=== PATIENT | female | born 1945 | race Caucasian/White ===

== ENCOUNTER 2018-02-13 10:04 | Emergency (ER) | payer OTHER, SELFPAY ==
[2018-02-13 10:08] VITALS: BP 134/65; PULSE 70; RESP 16; TEMP 36.8; O2SAT 99
--- NOTE | 2018-02-13 10:31 | ED.GENADUL ---
Disposition Clinical Impression: Rash Disposition: HOME Instructions: Acute Rash (ED), Impetigo (ED) Additional Instructions: Please use antibiotic ointment as prescribed. Please follow-up with your primary care physician. Return to the emergency department immediately for any worsening or new concerning symptoms. Prescriptions: Mupirocin 2% Oint. [Bactroban 2% Ointment] 22 gm TP DIRECTED #1 tube Medical Decision Making - Medical Decision Making 72-year-old female here with rash. Rashes sparsely distributed. No signs of cellulitis. Suspect insect bites versus very early impetigo given exposure history. Plan to treat with mupirocin. Patient understands importance of timely follow-up with primary care physician. I did encourage her to return should she have any worsening or new concerning symptoms. History of Present Illness - General Chief complaint: RashLesion Stated complaint: IMPETIGO Time Seen by Provider: 02/13/18 10:19 Source: patient, RN notes reviewed Mode of arrival: ambulatory Limitations: no limitations - Related Data ClonazePAM [KlonoPIN] 0.25 - 0.5 tab PO DAILY PRN 02/13/18 Lisinopril 10 mg PO DAILY 02/13/18 Mupirocin 2% Oint. [Bactroban 2% Ointment] 22 gm TP DIRECTED #1 tube 02/13/18 Allergies Allergy/AdvReac Type Severity Reaction Status Date / Time No Known Allergies Allergy Unverified 02/13/18 10:10 Review of Systems Constitutional: denies: chills, fever Skin: as per HPI Hematological/Lymphatic: denies: swollen glands Past Medical History - Past Medical History Medical history: hypertension - Social History Smoking status: never smoker General Exam - General Limitations: no limitations General appearance: alert, in no apparent distress - ENT ENT exam: Present: mucous membranes moist - Respiratory Respiratory exam: Present: normal lung sounds bilaterally - Cardiovascular Cardiovascular Exam: Present: regular rate, normal rhythm, normal heart sounds - Neurological Exam Neurological exam: Present: alert. Absent: altered - Skin Skin exam: Present: warm, dry, intact, other (Single 2mm papule right forearm, single 2mm papule, two 2mm papules abd, 3mm papule with excoriation behind right earlobe, no surrounding erythema or signs of cellulitis, no induration) Course Vital Signs - 24 hr 02/13/18 10:08 Temperature 36.8 C Pulse 70 Respiratory 16 Rate Blood Pressure 134/65 Pulse Oximetry 99
== END 2018-02-13 10:49 | disposition home or self-care (01) ==
PROVIDERS: Emergency Provider Student in an Organized Health Care Education/Training Program
DX: R21 Rash and other nonspecific skin eruption (principal); I10 Essential (primary) hypertension
CPT/HCPCS: 99283

== ENCOUNTER 2022-03-05 14:24 | Outpatient (REF) | payer MEDICARE, SELFPAY ==
[2022-03-05 20:03] LABS: Clarity Cloudy (Clear); Specific Gravity 1.015 (1.005-1.025)
[2022-03-05 20:04] LABS: Bacteria Few HPF (Negative); Casts Negative LPF (Negative); Crystals Negative HPF (Negative); Epithelial Cells Rare HPF (Negative); Mucus Negative (Negative); Other Cells Few Renal (Negative); WBC >50 HPF (0-5)
[2022-03-05 20:05] LABS: C & S Indicated? Yes
== END 2022-03-05 14:25 | disposition home or self-care (01) ==
LOC: LBN 14:24
PROVIDERS: Visit Provider Nurse Practitioner Family
DX: R30.0 Dysuria (principal); R35.0 Frequency of micturition; R31.9 Hematuria, unspecified
CPT/HCPCS: 87077; 81003; 81015; 87086; 87186

== ENCOUNTER 2023-02-20 13:43 | Outpatient (CLI) | payer MEDICARE, SELFPAY ==
--- NOTE | 2023-02-20 13:30 | RT.EKG_ITS ---
APPROVED REPORT Exam: Resting ECG Reason for Exam: chest discomfort Patient Location: O HR:73 bpm ECG Measurements Heart Rate 73 AXIS NE 165 P 81 QRSd 93 QRS 79 QT 390 T 10 QTc 430 Conclusion Sinus rhythm...normal P axis, V-rate 50- 99 Normal Electrocardiogram
== END 2023-02-20 13:44 | disposition home or self-care (01) ==
LOC: DI.CM 13:44
PROVIDERS: Visit Provider Nurse Practitioner Family
DX: R07.89 Other chest pain (principal)
CPT/HCPCS: 93010

== ENCOUNTER 2023-02-20 15:37 | Emergency (ER) | payer MEDICARE, SELFPAY ==
--- NOTE | 2023-02-20 15:30 | RT.EKG_ITS ---
APPROVED REPORT Exam: Resting ECG Reason for Exam: sob/chest pain Patient Location: E HR:78 bpm ECG Measurements Heart Rate 78 AXIS GA 171 P 82 QRSd 78 QRS 81 QT 373 T 12 QTc 426 Conclusion Sinus rhythm...normal P axis, V-rate 60- 99 sinus rhythm, normal axis, normal itnervals, T wave inversions III aVF
[2023-02-20 15:45] VITALS: BP 131/45; PULSE 82; RESP 21; TEMP 37.4; O2SAT 97
--- NOTE | 2023-02-20 15:45 | DI.RAD_ITS ---
Exam(s) XR CHEST 2V PA LATERAL EXAM: XR CHEST 2V PA LATERAL CLINICAL HISTORY: chest pain, cough. TECHNIQUE: 2D digital imaging was performed. COMPARISON: CT CHEST WITH CONTRAST from 05/03/2010 FINDINGS: 2 views: Heart size is normal. The mediastinum is not widened. Right lung is clear. There is, however, infiltrate in the left pre hilar region in the anterior segm ent left upper lobe. Also small left pleural effusion. No pleural effusion on the right side. IMPRESSION: Left sided infiltrate. Also small left pleural effusion. DATA REPOSITORY: RADIATION DOSE DELIVERED:
[2023-02-20 15:54] VITALS: RESP 14
--- NOTE | 2023-02-20 15:56 | ED.GENADUL_ITS ---
Discharge Plan Disposition Patient Disposition: Home Condition: Stable Discharge Details Clinical Impression: Pneumonia Primary Care Provider: Lety,Local ED Provider: Phill Jennings Home Meds and New Rx's Prescriptions: New azithromycin 250 mg tablet 250 mg PO DAILY 4 Days Qty: 4 0RF Rx Instructions: start on day 2 of therapy amoxicillin-pot clavulanate 875-125 mg tablet 1 tab PO BID 7 Days Qty: 14 0RF No Action hydrochlorothiazide 12.5 mg tablet 12.5 mg PO DAILY lisinopril 10 MG tablet 10 mg PO DAILY calcium 600 mg Capsule 600 mg PO DAILY alendronate [Fosamax] 70 mg tablet 70 mg PO QWEEK Patient Comments: TAKE 1 TABLET BY MOUTH EVERY WEEK ON AN EMPTY STOMACH WITH 8 OZ OF WATER Discharge Instructions Instructions: Pneumonia (ED) Medical Decision Making 77-year-old female presents with nonproductive cough, chest heaviness, discomfort worse with coughing, no shortness of breath no fevers or chills, no recent travel, no leg swelling or pain, no history of thromboembolic disease or coronary disease; likely viral URI versus early pneumonia must also consider pleurisy versus pleural effusion versus pneumothorax low suspicion for ACS PE or aortic pathology. Screening labs troponin, patient took 81 mg of aspirin earlier today, will complete 324 chewable dose, chest x-ray EKG close reassessment of symptoms 18: 04 evidence of pneumonia left lung. Hemodynamically stable not hypoxic nontoxic. Will dose azithromycin and Augmentin here in department and discharge patient home with prescription. Home care instructions and return precautions given HPI General Date/Time Provider Initiated Documentation: 02/20/23 15:44 . HPI Narrative: 77-year-old female presents with chest pain over the last several days worse with cough, denies recent hospitalization recent sick contact or recent travel, no history of thromboembolic disease or coronary disease. Has felt slightly warm however no chills or sweats Related Data Home Medications Medication Instructions Recorded Confirmed lisinopril 10 mg tablet 10 mg PO DAILY 02/13/18 02/20/23 alendronate 70 mg tablet (Fosamax) 70 mg PO QWEEK 02/20/23 02/20/23 amoxicillin 875 mg-potassium 1 tab PO BID 7 days #14 tabs 02/20/23 clavulanate 125 mg tablet azithromycin 250 mg tablet 250 mg PO DAILY 4 days #4 tabs 02/20/23 calcium 600 mg capsule 600 mg PO DAILY 02/20/23 02/20/23 hydrochlorothiazide 12.5 mg tablet 12.5 mg PO DAILY 02/20/23 02/20/23 Previous Rx's Medication Instructions Recorded amoxicillin 875 mg-potassium 1 tab PO BID 7 days #14 tabs 02/20/23 clavulanate 125 mg tablet azithromycin 250 mg tablet 250 mg PO DAILY 4 days #4 tabs 02/20/23 Allergies Allergy/AdvReac Type Severity Reaction Status Date / Time No Known Allergies Allergy Unverified 02/20/23 13:36 General Stated Complaint: Chest Pain TANVI: 2 Review of Systems Narrative: Review of Systems Constitutional: negative Eyes: negative ENT: negative Cardiovascular: negative Respiratory: Cough, chest pain Gastrointestinal: negative : negative Musculoskeletal: negative Skin: negative Neurologic: negative Psych: negative PFSH All Active Problems (Updated 02/20/23 @ 18:05 by Phill Jennings MD) Pneumonia (Acute) Social History Smoking/Tobacco Use Status: Never Smoking risk assessment performed?: Yes Alcohol Intake: current Alcohol Intake frequency: 0-2 drinks per day Alcohol type: wine Drug use: Never Substance use type: does not use Housing: house Do you feel safe in your relationship?: Yes Exam Narrative Exam Narrative: Physical Examination General: alert, awake, cooperative, resting comfortably, no acute distress HEENT: normocephalic, atraumatic; PERRL, EOM intact, conjunctiva normal; no nasal discharge; moist mucous membranes, oral and pharyngeal mucosa normal, tolerating secretions Neck: supple, trachea midline; full ROM Chest: normal to inspection Respiratory: normal respiratory effort, speaking in full sentences, clear to auscultation, no wheezing, rales or rhonchi Cardiac: regular rate, regular rhythm, S1S2 intact, no murmurs rubs or gallops GI: abdomen soft, non-tender, non-distended; no palpable mass or hepatosplenomegaly Skin: no lesions, rashes or trauma appreciated Neuro: AAOx3, normal speech, moving all extremities Extremities: No peripheral edema Psych: Appropriate mood and affect Course Vital Signs Vital signs: Vital Signs Temperature 37.4 C 02/20/23 15:45 Pulse 82 02/20/23 15:45 Respiratory Rate 21 02/20/23 15:45 Blood Pressure 131/45 L 02/20/23 15:45 Pulse Oximetry 97 02/20/23 15:45 Temperature 37.4 C 02/20/23 15:45 Temperature Source Oral 02/20/23 15:45 Pulse 82 02/20/23 15:45 Respiratory Rate 21 02/20/23 15:45 Blood Pressure 131/45 L 02/20/23 15:45 Pulse Oximetry 97 02/20/23 15:45 Oxygen Delivery Method Room Air 02/20/23 15:45 Oxygen Flow Rate 0 02/20/23 15:45 Pain Level 6 02/20/23 15:45
[2023-02-20 16:10] LABS: Abs Immature Grans 0.03 10^3/uL (0.0-0.06); Absolute Basophil Count 0.06 10^3/uL (0.0-0.2); Absolute Eosinophil Count 0.06 10^3/uL (0.0-0.7); Absolute Lymphocyte Count 1.63 10^3/uL (1.2-3.4); Absolute Monocyte Count 1.27 10^3/uL (0.1-0.8); Absolute Neutrophil Count 6.51 10^3/uL (1.2-6.7); Basophils % 0.6; Eosinophils % 0.6; HCT 37.9 % (36.0-46.0); HGB 12.8 g/dL (11.2-15.7); Immature Grans % 0.3; Lymphocytes % 17.1; MCH 31.9 pg (27.0-33.0); MCHC 33.8 % (32.0-36.0); MCV 95 fL (80-95); MPV 9.2 fL (8.0-11.0); Monocytes % 13.3; Neutrophils % 68.1; Platelet Count 258 10^3/uL (130-400); RBC 4.01 10^6/uL (3.93-5.22); RDW 11.3 % (11.7-14.6); RDW-SD 39.3 fL; WBC 9.56 10^3/uL (4.4-10.8)
[2023-02-20] MEDS: Aspirin 81 MG CHEW 243 MG CH (16:12)
[2023-02-20 16:23] LABS: INR 0.9 (0.9-1.1); PTT Activated 25.9 sec (21.5-31.9); Prothrombin Time 9.2 sec (9.3-11.0)
[2023-02-20 16:32] LABS: ALT 25 U/L (14-59); AST 22 U/L (15-37); Albumin 3.7 g/dL (3.4-5.0); Alkaline Phosphatase 88 U/L (46-116); Anion Gap 7.7 mmol/L (3-11); BUN 24 mg/dL (7-18); Bilirubin, Total 0.8 mg/dL (0.2-1.0); CO2 27.3 mmol/L (21.0-32.0); Calcium 9.4 mg/dL (8.5-10.1); Chloride 98 mmol/L (98-107); Estimated GFR 57.66 (mL/min/1.73m2); Glucose 114 mg/dL (74-106); NT-proBNP 250 pg/mL (<300); Potassium 3.8 mmol/L (3.5-5.1); Sodium 133 mmol/L (136-145); Total Protein 7.3 g/dL (6.4-8.2); Troponin I < 50 ng/L (<or=60)
[2023-02-20] MEDS: Amoxicillin 875/Clav. 125 TAB PO (18:10)
[2023-02-20] MEDS: Azithromycin 250 MG TAB 500 MG PO (18:11)
[2023-02-20 18:16] VITALS: BP 130/41; PULSE 77; RESP 14; TEMP 36.9; O2SAT 96
== END 2023-02-20 18:31 | disposition home or self-care (01) ==
PROVIDERS: Emergency Provider Emergency Medicine
DX: J18.9 Pneumonia, unspecified organism (principal); R06.02 Shortness of breath; R07.9 Chest pain, unspecified
CPT/HCPCS: 36415; 80053; 93005; 99283; 71046; 83880; 84484; 85025; 85610; 85730; 93010; 99284